=== PATIENT | male | born 1990 | race Caucasian/White ===

== ENCOUNTER 2018-03-18 12:52 | Emergency (ER) | payer BC, OTHER ==
[~2018-03-18] VITALS: Ht 175.3 cm; Wt 59.0 kg
[~2018-03-18 12:52] MED LIST: AMOX500C2 PO; AMOX500T2 PO; HYDR-34 PO; HYDR-757 PO; IBUP-1780 PO; TRAM50TA2 PO
--- NOTE | 2018-03-18 13:09 | ED Upper Extremity ---
General Chief Complaint: Laceration Stated Complaint: RIGHT INDEX FINGER LAC Source: patient Exam Limitations: no limitations History of Present Illness Date Seen by Provider: Mar 18, 2018 Time Seen by Provider: 13:07 Initial Comments to ER with a laceration/crush injury to the middle phalanx right pointer finger just prior to arrival when he was loading a trailer and his finger got caught between the truck hitch and the trailer. Tetanus was updated in 2015. He is right-hand dominant. Onset: just prior to arrival Severity: moderate Pain/Injury Location: right 2nd finger Method of Injury: direct blow Modifying Factors: Worse With Movement Allergies and Home Medications Allergies Coded Allergies: No Known Drug Allergies (Unverified , 05/06/15) Home Medications Cephalexin 500 Mg Capsule, 500 MG PO TID Prescribed by: PARTH BANDA on 03/18/18 1322 Hydrocodone/Acetaminophen 1 Each Tablet, 1 EACH PO Q4H PRN for PAIN-SEVERE do not fill unless keflex is also filled. Prescribed by: PARTH BANDA on 03/18/18 1322 Ibuprofen 800 Mg Tablet, 800 MG PO Q8H PRN for PAIN Prescribed by: PARTH BANDA on 04/14/16 1412 Patient Home Medication List Home Medication List Reviewed: Yes Constitutional: see HPI EENTM: see HPI Respiratory: no symptoms reported Cardiovascular: no symptoms reported Genitourinary: no symptoms reported Musculoskeletal: see HPI Skin: no symptoms reported Psychiatric/Neurological: No Symptoms Reported Past Grmmrhd-Oqibyc-Qawjfv Hx Patient Social History Former Smoker, Quit: Mar 23, 2016 Recent Foreign Travel: No Contact w/Someone Who Travel: No Recent Hopitalizations: No Immunizations Up To Date Tetanus Booster (TDap): More than 5yrs Seasonal Allergies Seasonal Allergies: No Past Medical History Reproductive Disorders: No Adverse Reaction/Blood Tranf: No Family Medical History No Pertinent Family Hx Physical Exam Vital Signs Vital Signs - First Documented 03/18/18 12:58 Temp 97.4 Pulse 75 Resp 16 B/P (MAP) 136/79 (98) O2 Delivery Room Air Capillary Refill : General Appearance: WD/WN, no apparent distress HEENT: PERRL/EOMI, normal ENT inspection Neck: non-tender, full range of motion Respiratory: no respiratory distress, no accessory muscle use Gastrointestinal: normal bowel sounds, non tender Elbow/Forearm: normal inspection, non-tender, Right Wrist: Yes normal inspection, Yes non-tender, Yes no evidence of injury Hand: Right, limited ROM (deformity to the middle phalanx with a laceration to the dorsal and palmar surface. Distally, sensation remains intact.evaluation of motor function is limited due to pain) Neurologic/Psychiatric: alert, normal mood/affect, oriented x 3 Skin: normal color, warm/dry Procedures/Interventions Wound Location: Upper Extremities Wound Length (cm): 3 Wound's Depth, Shape: linear, tendon Wound Explored: clean Irrigated w/ Saline (ccs): 400 Volume Anesthetic (ccs): 4 Suture: Prolene Suture Size: 4-0 Number of Sutures: 7 Layer Closure?: 1 Number Deep Layer Sutures: 0 Progress finger was anesthetized using 2 mL of lidocaine and 2 mL of bupivacaine using a digital block for anesthesia. Traction was then applied to the distal phalanx with pressure applied over the dorsal proximal aspect of the distal phalanx. Joint was reduced. Both lacerations were explored and there was no foreign body identified. The dorsal laceration was cleaned with 200 mL of sterile water/ Betadine solution and the palmar surface was irrigated the same. The flexor tendon was seen but appears to be intact. Dorsally he was closed with 3 simple interrupted sutures size 4-0 Prolene.Palmar surface was closed with 4 simple interrupted sutures size 4-0 Prolene. X-ray will be obtained to confirm reduction and I'll wrap the laceration with xeroform and gauze. Progress/Results/Core Measures Results/Orders My Orders Orders - PARTH BANDA APRN Lidocaine 2% Injection 20 Ml (Xylocaine (03/18/18 13:15) Bupivacaine 0.5% Injection (Sensorcaine (03/18/18 13:15) Dipht,Pertuss(Acell),Tet Adult (Boostrix (03/18/18 13:15) Hand, Right, 3 Views (03/18/18 13:04) Cefazolin Injection (Ancef Injection) (03/18/18 13:15) Water (Sterile) For Injection (Sterile W (03/18/18 13:10) Finger(S) (03/18/18 13:42) Medications Given in ED Current Medications Medications Dose Ordered Sig/Gideon Route Start Time Stop Time Status Last Admin Dose Admin Bupivacaine HCl 2 ml ONCE ONCE INJ 03/18/18 13:15 7/5/18 13:16 DC 03/18/18 13:19 2 ML Cefazolin Sodium 1,000 mg ONCE ONCE IM 03/18/18 13:15 03/18/18 13:16 DC 03/18/18 13:16 1,000 MG Lidocaine HCl 2 ml ONCE ONCE INJ 03/18/18 13:15 03/18/18 13:16 DC 03/18/18 13:20 2 ML Sterile Water 20 ml @ [facility] ONCE .ROUTE 03/18/18 13:10 03/18/18 13:13 DC 03/18/18 13:17 2.5 ML/HR Vital Signs/I&O 03/18/18 12:58 Temp 97.4 Pulse 75 Resp 16 B/P (MAP) 136/79 (98) O2 Delivery Room Air Diagnostic Imaging Diagonstic Imaging: Xray Comments NAME: JARETH WALTER [facility] REC#: [id number] PT STATUS: REG ER : 1990 PHYSICIAN: PARTH BANDA APRN ADMIT DATE: 03/18/18/ER Draft Date of Exam:03/18/18 HAND, RIGHT, 3 VIEWS INDICATION: Right hand injury. AP, oblique and lateral views of the right hand are obtained. Dorsal dislocation of the second distal phalanx. Focal lucency proximal to the dislocated distal phalanx may represent gas. There is associated swelling. No other fracture or malalignment is seen. IMPRESSION: Dorsal dislocation of the second distal phalanx. No definite fractures identified. Dictated on workstation # [id number] Dict: 03/18/18 1317 Trans: 03/18/18 1321 [facility] [id number] Interpreted by: KELLY LANDIN MD Electronically signed by: Departure Impression Primary Impression: Open finger dislocation Disposition: 01 HOME, SELF-CARE Condition: Stable Departure-Patient Inst. Decision time for Depature: 13:19 Referrals: JETHRO SIFUENTES MD, MARK E DO NO,LOCAL PHYSICIAN (PCP) Primary Care Physician GABRIELLA WAGONER MD, ROBERT F DO ZAFUTA, MICHAEL P MD Patient Instructions: Finger Dislocation Add. Discharge Instructions: 1. Antibiotics as directed 2. Take medication as directed 3. Return to ER to have the stitches removed in 10 days. Return to ER before then for any redness or swelling that may indicate infection. Follow-up with orthopedic surgeon of your choosing.A list has been provided for you. Call tomorrow to make an appointment to be seen as soon as they can schedule you, preferably within 1 week. Scripts Hydrocodone/Acetaminophen ([place] 5-325 Tablet) 1 Each Tablet 1 EACH PO Q4H PRN for PAIN-SEVERE, #14 TAB do not fill unless keflex is also filled. Prov: PARTH BANDA APRN 03/18/18 Cephalexin (Keflex) 500 Mg Capsule 500 MG PO TID, #21 CAP Prov: PARTH BANDA APRN 03/18/18 Work/School Note: Work Release Form Date Seen in the Emergency Department: Mar 18, 2018 Return to Work: Mar 19, 2018 Other Restrictions Listed Below: wear finger splint at all times for 7 days. Copy Copies To 1: RAFI JEFFERY MD, PETER J APRN Mar 18, 2018 13:09
[2018-03-18] MEDS ORDERED: WATER (STERILE) FOR INJECTION 20 ML ONE (13:10)
[2018-03-18] MEDS ORDERED: ceFAZolin 1,000 MG (ANCEF) VIAL IM ONE (13:15)
[2018-03-18] MEDS ORDERED: BUPIVACAINE 0.5% 30 ML (SENSORCAINE) VIAL INJ ONE (13:15)
[2018-03-18] MEDS ORDERED: LIDOCAINE 2% 20 ML (XYLOCAINE) VIAL INJ ONE (13:15)
[2018-03-18] MEDS ORDERED: TETANUS,DIPTH,PERTUSS P/F (BOOSTRIX) 0.5 ML VIAL IM ONE (13:15)
--- NOTE | 2018-03-18 13:21 | Diagnostic Imaging Report ---
INDICATION: Right hand injury. AP, oblique and lateral views of the right hand are obtained. Dorsal dislocation of the second distal phalanx. Focal lucency proximal to the dislocated distal phalanx may represent gas. There is associated swelling. No other fracture or malalignment is seen. IMPRESSION: Dorsal dislocation of the second distal phalanx. No definite fractures identified. Dictated by: Dictated on workstation # [id number]
[2018-03-18] MEDS ORDERED: HYDR-757 PO (13:22)
[2018-03-18] MEDS ORDERED: CEPH-507 PO (13:22)
[2018-03-18 14:17] VITALS: BP 134/77
--- NOTE | 2018-03-18 14:28 | Diagnostic Imaging Report ---
INDICATION: Dislocation of the distal interphalangeal joint index finger, post reduction. TECHNIQUE: Single view right hand with lateral view right index finger, 1:55 PM . CORRELATION STUDY: 03/18/2018 FINDINGS: There has been interval reduction of previously noted dislocated distal interphalangeal joint of the index finger. The alignment is anatomic on post reduction imaging. No definitive fracture. Remaining os structures There is mild soft tissue swelling of distal aspect of the index finger. IMPRESSION: 1. Satisfactory reduction of a previously demonstrated dislocated distal interphalangeal joint of the index finger. Alignment anatomic with associated soft tissue swelling. Dictated by: Dictated on workstation # [id number]
== END 2018-03-18 14:17 | disposition home or self-care (01) ==
LOC: EDUNIT# 12:52 → ER 12:55
DX: S63.290A Dislocation of distal interphalangeal joint of right index finger, initial encounter (principal); Z23 Encounter for immunization; Z87.891 Personal history of nicotine dependence; W23.1XXA Caught, crushed, jammed, or pinched between stationary objects, initial encounter
CPT/HCPCS: 12042; 73130; 73140; 90471; 96372

== ENCOUNTER 2018-03-28 16:11 | Emergency (ER) | payer BC ==
[~2018-03-28] VITALS: Ht 175.3 cm; Wt 59.0 kg
[~2018-03-28 16:11] MED LIST changes: +CEPH-507 PO
[2018-03-28 16:42] VITALS: BP 136/72
== END 2018-03-28 16:45 | disposition home or self-care (01) ==
LOC: EDUNIT# 16:11 → ER 16:13
DX: S61.210D Laceration without foreign body of right index finger without damage to nail, subsequent encounter (principal); X58.XXXD Exposure to other specified factors, subsequent encounter

== ENCOUNTER → 2018-12-31 | Outpatient (CLI) | payer OTHER ==
[~2018-12-31] MED LIST changes: +HYDR-4226 PO; -HYDR-757 PO
--- NOTE | 2018-12-31 13:19 | Diagnostic Imaging Report ---
PROCEDURE: CT abdomen without contrast. TECHNIQUE: Multiple contiguous axial images were obtained through the abdomen without the use of intravenous contrast. Auto Exposure Controls were utilized during the CT exam to meet ALARA standards for radiation dose reduction. INDICATION: Midabdominal pain. This study is performed to evaluate for hernia. COMPARISON: Correlation is made with prior CT from 04/14/2016. FINDINGS: The lung bases are clear. The liver and gallbladder are unremarkable. No biliary ductal dilatation is seen. Pancreas and spleen are unremarkable. No adrenal mass is detected. No renal calculi or hydronephrosis is identified. Aorta is nonaneurysmal. Abdominal bowel loops are normal in caliber. No obstruction is seen. No abdominal wall defect is detected to suggest hernia. No free fluid or fluid collection is identified. IMPRESSION: Unremarkable noncontrast CT of the abdomen. Dictated by: Dictated on workstation # [id number]
== END ==
LOC: RAD 12:35
PROVIDERS: ATTEND Nurse Practitioner
DX: R10.9 Unspecified abdominal pain (principal)
CPT/HCPCS: 74150

== ENCOUNTER 2021-04-30 05:53 | Emergency (ER) | payer OTHER ==
[~2021-04-30] VITALS: Ht 177 cm; Wt 61.2 kg
[~2021-04-30 05:53] MED LIST changes: -TRAM50TA2 PO; +TRM50T PO
--- NOTE | 2021-04-30 06:11 | ED Abdominal Pain ---
General Stated Complaint: LEFT KIDNEY PAIN Source of Information: Patient Exam Limitations: No Limitations History of Present Illness Date Seen by Provider: Apr 30, 2021 Time Seen by Provider: 06:00 Initial Comments Patient to ER by private conveyance with chief complaint of severe pain just prior to arrival that woke him from sleep that is sharp unrelenting 10 out of 10. He did not take anything for it yet. He tried to have a bowel movement and urine but was unable to pass either. He has no history of kidney stones. Has some mild burning on urination. No blood in the urine. No other significant medical history or surgeries. Allergies and Home Medications Allergies Coded Allergies: No Known Drug Allergies (Unverified , 05/06/15) Home Medications Cephalexin 500 Mg Capsule, 500 MG PO TID Prescribed by: PARTH BANDA on 03/18/18 1322 Hydrocodone/Acetaminophen 1 Each Tablet, 1 EACH PO Q4H PRN for PAIN-SEVERE do not fill unless keflex is also filled. Prescribed by: PARTH BANDA on 03/18/18 1322 Ibuprofen 800 Mg Tablet, 800 MG PO Q8H PRN for PAIN Prescribed by: PARTH BANDA on 04/14/16 1412 Patient Home Medication List Home Medication List Reviewed: Yes Review of Systems Review of Systems Constitutional: No chills, No fever EENTM: No Blurred Vision, No Double Vision Respiratory: Denies Cough, Denies Shortness of Air Cardiovascular: Denies Chest Pain, Denies Edema Gastrointestinal: See HPI; Denies Constipated, Denies Diarrhea; Nausea; Denies Vomiting Genitourinary: Denies Burning, Denies Discharge Musculoskeletal: No back pain, No joint pain Skin: No pruritus, No rash Psychiatric/Neurological: Denies Headache, Denies Numbness All Other Systems Reviewed Negative Unless Noted: Yes Past Soldmtp-Wkmhka-Xbbozn Hx Patient Social History Tobacco Use?: No Use of E-Cig and/or Vaping dev: No Substance use?: No Immunizations Up To Date Tetanus Booster (TDap): More than 5yrs Seasonal Allergies Seasonal Allergies: No Past Medical History Surgeries: Yes (JAW) Respiratory: No Cardiac: No Neurological: No Reproductive Disorders: No Gastrointestinal: No Musculoskeletal: No Endocrine: No Cancer: No Psychosocial: No Integumentary: No Blood Disorders: No Adverse Reaction/Blood Tranf: No Family Medical History No Pertinent Family Hx Physical Exam Vital Signs Vital Signs - First Documented 04/30/21 05:56 Temp 36.9 Pulse 111 Resp 18 B/P (MAP) 106/55 (72) Pulse Ox 97 O2 Delivery Room Air Capillary Refill : Height/Weight/BMI Height: 5'9.00" Weight: 130lbs. oz. 58.991764em; 14.06 BMI Method:Stated General Appearance: WD/WN, moderate distress HEENT: PERRL/EOMI, pharynx normal Neck: full range of motion, normal inspection Respiratory: lungs clear, normal breath sounds, no respiratory distress, no accessory muscle use Cardiovascular: normal peripheral pulses, regular rate, rhythm Peripheral Pulses: 2+ Radial Pulses (R), 2+ Radial Pulses (L) Gastrointestinal: normal bowel sounds, non tender, soft Back: normal inspection, CVA tenderness (L) Neurologic/Psychiatric: alert, oriented x 3, other (Anxious affect) Skin: normal color, warm/dry Procedures/Interventions Suture Size: 4-0 Progress/Results/Core Measures Results/Orders Lab Results Laboratory Tests Test 04/30/21 06:05 Range/Units White Blood Count 11.9 H 4.3-11.0 10^3/uL Red Blood Count 4.99 4.30-5.52 10^6/uL Hemoglobin 15.6 13.3-17.7 g/dL Hematocrit 45 40-54 % Mean Corpuscular Volume 91 80-99 fL Mean Corpuscular Hemoglobin 31 25-34 pg Mean Corpuscular Hemoglobin Concent 34 32-36 g/dL Red Cell Distribution Width 12.7 10.0-14.5 % Platelet Count 319 130-400 10^3/uL Mean Platelet Volume 10.1 9.0-12.2 fL Immature Granulocyte % (Auto) 0 % Neutrophils (%) (Auto) 57 42-75 % Lymphocytes (%) (Auto) 30 12-44 % Monocytes (%) (Auto) 6 0-12 % Eosinophils (%) (Auto) 7 0-10 % Basophils (%) (Auto) 1 0-10 % Neutrophils # (Auto) 6.8 1.8-7.8 10^3/uL Lymphocytes # (Auto) 3.6 1.0-4.0 10^3/uL Monocytes # (Auto) 0.7 0.0-1.0 10^3/uL Eosinophils # (Auto) 0.8 H 0.0-0.3 10^3/uL Basophils # (Auto) 0.1 0.0-0.1 10^3/uL Immature Granulocyte # (Auto) 0.1 0.0-0.1 10^3/uL Sodium Level 140 135-145 MMOL/L Potassium Level 4.4 3.6-5.0 MMOL/L Chloride Level 103 98-107 MMOL/L Carbon Dioxide Level 26 21-32 MMOL/L Anion Gap 11 5-14 MMOL/L Blood Urea Nitrogen 21 H 7-18 MG/DL Creatinine 1.12 0.60-1.30 MG/DL Estimat Glomerular Filtration Rate 78 BUN/Creatinine Ratio 19 Glucose Level 110 H 70-105 MG/DL Calcium Level 9.4 8.5-10.1 MG/DL Corrected Calcium 8.5-10.1 MG/DL Total Bilirubin 0.3 0.1-1.0 MG/DL Aspartate Amino Transf (AST/SGOT) 16 5-34 U/L Alanine Aminotransferase (ALT/SGPT) 21 0-55 U/L Alkaline Phosphatase 76 40-136 U/L Total Protein 7.2 6.4-8.2 GM/DL Albumin 4.6 H 3.2-4.5 GM/DL My Orders Orders - BRITTANY ALEXANDER Ketorolac Injection (Toradol Injection) (04/30/21 06:15) Ed Iv/Invasive Line Start (04/30/21 06:04) Lactated Ringers (Lr 1000 Ml Iv Solution (04/30/21 06:15) Cbc With Automated Diff (04/30/21 06:04) Comprehensive Metabolic Panel (04/30/21 06:04) Ondansetron Injection (Zofran Injectio (04/30/21 06:15) Ct Abd/Pelvis Wo(Kidney Stone) (04/30/21 06:05) Ua Culture If Indicated (04/30/21 06:51) Medications Given in ED Current Medications Medications Dose Ordered Sig/Gideon Route Start Time Stop Time Status Last Admin Dose Admin Ketorolac Tromethamine 30 mg ONCE ONCE IVP 04/30/21 06:15 04/30/21 06:16 DC 04/30/21 06:09 30 MG Lactated Ringer's 1,000 ml @ 0 mls/hr Q0M ONCE IV 04/30/21 06:15 04/30/21 06:16 DC 04/30/21 06:09 1,000 MLS/HR Ondansetron HCl 4 mg ONCE ONCE IVP 04/30/21 06:15 04/30/21 06:16 DC 04/30/21 06:09 4 MG Vital Signs/I&O 04/30/21 05:56 Temp 36.9 Pulse 111 Resp 18 B/P (MAP) 106/55 (72) Pulse Ox 97 O2 Delivery Room Air Progress Progress Note : Time: 06:13 Progress Note Suspect kidney stone, possible pyelonephritis. Plan to grab some urine and get a CT of his abdomen pelvis without IV contrast kidney stone study. Toradol and Zofran. Diagnostic Imaging Diagonstic Imaging: CT Plain Films/CT/US/NM/MRI: abdomen, pelvis Comments [facility] [place] NAME: JARETH WALTER [facility] REC#: [id number] PT STATUS: REG ER : 1990 PHYSICIAN: BRITTANY ALEXANDER MD ADMIT DATE: 04/30/21/ER Signed Date of Exam:04/30/21 CT ABD/PELVIS WO(KIDNEY STONE) PROCEDURE: CT urinary tract, rule out kidney stone. TECHNIQUE: Multiple contiguous axial images were obtained through the abdomen and pelvis without the use of intravenous contrast. Auto Exposure Controls were utilized during the CT exam to meet ALARA standards for radiation dose reduction. INDICATION: Left-sided flank pain. COMPARISON: 12/31/2018. FINDINGS: The heart is unremarkable. The lung bases are clear. Calculus is seen in the distal left ureter just proximal to the left UVJ measuring 3 mm. There is mild left-sided hydroureteronephrosis. No evidence of renal calculi or hydronephrosis on the right. Increased attenuation is seen within the medulla of the right kidney. The liver, spleen, pancreas, and adrenal glands have a normal noncontrast CT appearance. There is no pathologically enlarged mesenteric or retroperitoneal adenopathy. The bowel loops are nondilated. The appendix is visualized in the right lower quadrant and has a normal appearance. There is no free fluid or free air. No acute osseous abnormalities. The urinary bladder is decompressed. There is no free air, loculated collection, or adenopathy in the pelvis. IMPRESSION: 1. Urolithiasis in the distal left ureter measuring 3 mm with mild left-sided hydronephrosis. 2. Increased attenuation in the medulla of the right kidney, which can be seen with medullary nephrocalcinosis. Recommend correlation with patient history. Dictated by: Dictated on workstation # [id number] Dict: 04/30/2141 Trans: 04/30/21644 [facility] [id number] Interpreted by: EMY CASTILLO DO Electronically signed by: EMY CASTILLO DO 04/30/2145 Reviewed: Reviewed by Me Departure Impression Primary Impression: Kidney stone on left side Additional Impression: Medullary calcification of kidney Disposition: HOME, SELF-CARE Condition: Stable Departure-Patient Inst. Decision time for Depature: 07:09 [place] [facility] [place] Primary Care Physician DEANDRA BAEZA APRN (Family) Primary Care Physician ELISEO LAI MD Patient Instructions: Kidney Stone, Adult ED, How to Strain Your Urine Add. Discharge Instructions: Drink lots of fluids. Tylenol 650 mg every 8 hours as needed for pain. Motrin 800 mg every 8 hours as needed for pain. Heat applied to the back as needed. Hydrocodone 1 tablet every 6 hours as necessary for breakthrough pain. Flomax 1 capsule daily until you pass the stones. Ondansetron 1 tablet every 6 hours under the tongue as necessary for nausea and/or vomiting. Keflex 1 capsule twice a day for the next week to treat possible UTI. Strain your urine using the strainer to see when the stones pass. Occasionally stones will break up and not be caught in the strainer. Symptoms should resolve 1 to 2 days after the passing of stones. I suggest you follow-up with Dr. Lai, urology this week. Return to the nearest ER if you are having intractable pain and/or nausea, fever etc. Scripts Tamsulosin HCl (Flomax) 0.4 Mg Cap 0.4 MG PO DAILY for 7 Days, #7 CAP 0 Refills Prov: BRITTANY ALEXANDER 04/30/21 Cephalexin (Cephalexin) 500 Mg Tablet 500 MG PO BID for 7 Days, #14 TAB 0 Refills Prov: BRITTANY ALEXANDER 04/30/21 Ondansetron (Ondansetron Odt) 4 Mg Tab.rapdis 4 MG PO Q6H PRN for NAUSEA/VOMITING, #15 TAB 0 Refills Prov: BRITTANY ALEXANDER 04/30/21 Hydrocodone/Acetaminophen (Hydrocodone-Acetamin 5-325 mg) 1 Each Tablet 1 TAB PO Q6H PRN for PAIN-MODERATE (5-7), #15 TAB 0 Refills Prov: BRITTANY ALEXANDER 04/30/21 Work/School Note: Work Release Form Date Seen in the Emergency Department: Apr 30, 2021 Return to Work: May 03, 2021 Restrictions: No Restrictions Copy Copies To 1: ELISEO LAI MD, TITUS J Apr 30, 2021 06:11
[2021-04-30 06:13] LABS: BASOPHILS # (AUTO) 0.1 10^3/uL (0.0-0.1); BASOPHILS % (AUTO) 1 % (0-10); EOSINOPHILS # (AUTO) 0.8 10^3/uL (0.0-0.3); EOSINOPHILS % (AUTO) 7 % (0-10); HEMATOCRIT 45 % (40-54); HEMOGLOBIN 15.6 g/dL (13.3-17.7); LYMPHOCYTES # (AUTO) 3.6 10^3/uL (1.0-4.0); LYMPHOCYTES % (AUTO) 30 % (12-44); MEAN CORPUSCULAR HEMOGLOBIN 31 pg (25-34); MEAN CORPUSCULAR HGB CONC 34 g/dL (32-36); MEAN CORPUSCULAR VOLUME 91 fL (80-99); MEAN PLATELET VOLUME 10.1 fL (9.0-12.2); MONOCYTES # (AUTO) 0.7 10^3/uL (0.0-1.0); MONOCYTES % (AUTO) 6 % (0-12); NEUTROPHILS # (AUTO) 6.8 10^3/uL (1.8-7.8); NEUTROPHILS % (AUTO) 57 % (42-75); PLATELET COUNT 319 10^3/uL (130-400); WHITE BLOOD COUNT 11.9 10^3/uL (4.3-11.0)
[2021-04-30] MEDS ORDERED: ONDANSETRON 4 MG/2 ML (SDV) Z0FRAN IVP ONE (06:15)
[2021-04-30] MEDS ORDERED: LACTATED RINGERS 1,000 ML IV ONE (06:15)
[2021-04-30] MEDS ORDERED: KETOROLAC 30 MG/ML VIAL IVP ONE (06:15)
[2021-04-30 06:22] LABS: ALBUMIN 4.6 GM/DL (3.2-4.5)
[2021-04-30 06:23] LABS: CHLORIDE 103 MMOL/L (98-107); POTASSIUM 4.4 MMOL/L (3.6-5.0); SODIUM 140 MMOL/L (135-145)
[2021-04-30 06:24] LABS: CALCIUM 9.4 MG/DL (8.5-10.1)
[2021-04-30 06:25] LABS: GLUCOSE 110 MG/DL (70-105); TOTAL PROTEIN 7.2 GM/DL (6.4-8.2)
[2021-04-30 06:26] LABS: CARBON DIOXIDE 26 MMOL/L (21-32)
[2021-04-30 06:27] LABS: BILIRUBIN,TOTAL 0.3 MG/DL (0.1-1.0)
[2021-04-30 06:28] LABS: ALKALINE PHOSPHATASE 76 U/L (40-136)
[2021-04-30 06:29] LABS: CREATININE SERUM 1.12 MG/DL (0.60-1.30); GFR ESTIMATED 78
[2021-04-30 06:30] LABS: BUN/CREATININE RATIO 19
[2021-04-30 06:31] LABS: ALANINE AMINOTRANSFERASE 21 U/L (0-55)
--- NOTE | 2021-04-30 06:45 | Diagnostic Imaging Report ---
PROCEDURE: CT urinary tract, rule out kidney stone. TECHNIQUE: Multiple contiguous axial images were obtained through the abdomen and pelvis without the use of intravenous contrast. Auto Exposure Controls were utilized during the CT exam to meet ALARA standards for radiation dose reduction. INDICATION: Left-sided flank pain. COMPARISON: 12/31/2018. FINDINGS: The heart is unremarkable. The lung bases are clear. Calculus is seen in the distal left ureter just proximal to the left UVJ measuring 3 mm. There is mild left-sided hydroureteronephrosis. No evidence of renal calculi or hydronephrosis on the right. Increased attenuation is seen within the medulla of the right kidney. The liver, spleen, pancreas, and adrenal glands have a normal noncontrast CT appearance. There is no pathologically enlarged mesenteric or retroperitoneal adenopathy. The bowel loops are nondilated. The appendix is visualized in the right lower quadrant and has a normal appearance. There is no free fluid or free air. No acute osseous abnormalities. The urinary bladder is decompressed. There is no free air, loculated collection, or adenopathy in the pelvis. IMPRESSION: 1. Urolithiasis in the distal left ureter measuring 3 mm with mild left-sided hydronephrosis. 2. Increased attenuation in the medulla of the right kidney, which can be seen with medullary nephrocalcinosis. Recommend correlation with patient history. Dictated by: Dictated on workstation # [id number]
[2021-04-30] MEDS ORDERED: cefTRIAXone 1,000 MG in WATER (STERILE) FOR INJECTION 10 ML IV ONE (07:15)
[2021-04-30] MEDS ORDERED: ACHD5005 PO (07:22)
[2021-04-30] MEDS ORDERED: TMSL.4C PO (07:22)
[2021-04-30] MEDS ORDERED: ONDA4TAB11 PO (07:22)
[2021-04-30] MEDS ORDERED: CEPH500T PO (07:22)
[2021-04-30 07:33] LABS: BILIRUBIN,URINE NEGATIVE (NEGATIVE); CLARITY,URINE CLEAR; COLOR,URINE YELLOW; GLUCOSE, URINE (UA) NEGATIVE (NEGATIVE); KETONES,URINE TRACE (NEGATIVE); LEUKOCYTE ESTERASE ,URINE TRACE (NEGATIVE); NITRITE,URINE NEGATIVE (NEGATIVE); PROTEIN,URINE TRACE (NEGATIVE)
[2021-04-30 07:38] VITALS: BP 109/45
[2021-04-30 07:50] LABS: BACTERIA,URINE NEGATIVE /HPF; RBC,URINE 50-100 /HPF; WBC,URINE 0-2 /HPF
== END 2021-04-30 07:30 | disposition home or self-care (01) ==
LOC: EDUNIT# 05:53 → ER 05:56
DX: N13.2 Hydronephrosis with renal and ureteral calculous obstruction (principal); N28.89 Other specified disorders of kidney and ureter
CPT/HCPCS: 36415; 74176; 80053; 81000; 85025; 96374; 96375

== ENCOUNTER 2022-05-25 14:55 | Emergency (ER) | payer OTHER ==
[~2022-05-25] VITALS: Ht 177.8 cm; Wt 58.9 kg
[~2022-05-25 14:55] MED LIST changes: +ACHD5005 PO; +CEPH500T PO; +ONDA4TAB11 PO; +TMSL.4C PO
[2022-05-25] MEDS ORDERED: SULF1TAB38 PO (15:54)
--- NOTE | 2022-05-25 15:55 | ED Integumentary General ---
General Chief Complaint: Skin/Wound Problems Stated Complaint: L ARMPIT LUMP Nursing Triage Note: PT AMB TO [facility]. PT STATED THAT HE FOUND A LUMP ON HIS LEFT ARMPIT 5 MONTHS AGO AND STARTED TO HAVE PAIN IN THE LAST 4 DAYS, WITH LUMP BECOMING SWOLLEN AND RED. (CHYNA ADAME) History of Present Illness Date Seen by Provider: May 25, 2022 Time Seen by Provider: 15:30 Initial Comments 32-year-old male presents with a small abscess to the left axilla. He reports that he has had some symptoms for approximately 5 months but they have become progressively worse over the last 4 days. He has had no drainage from the site. He denies any history of MRSA. Timing/Duration: getting worse Severity: mild Location: torso (Left axilla) Possible Cause: no cause identified Associated Symptoms: denies symptoms (CHYNA ADAME) Allergies and Home Medications Allergies Coded Allergies: No Known Drug Allergies (Unverified , 05/06/15) Patient Home Medication List Home Medication List Reviewed: Yes (CHYNA ADAME) Cephalexin (Keflex) 500 Mg Capsule, 500 MG PO TID Prescribed by: PARTH BANDA on 03/18/18 1322 Cephalexin (Cephalexin) 500 Mg Tablet, 500 MG PO BID Prescribed by: BRITTANY ALEXANDER on 04/30/21 07 Hydrocodone/Acetaminophen (Hydrocodone/Acetaminophen 5 MG/325 MG TAB) 1 Each Tablet, 1 EACH PO Q4H PRN for PAIN-SEVERE Prescribed by: PARTH BANDA on 03/18/18 1322 Hydrocodone/Acetaminophen (Hydrocodone-Acetamin 5-325 mg) 1 Each Tablet, 1 TAB PO Q6H PRN for PAIN-MODERATE (5-7) Prescribed by: BRITTANY ALEXANDER on 04/30/21 07 Ibuprofen (Ibuprofen) 800 Mg Tablet, 800 MG PO Q8H PRN for PAIN Prescribed by: PARTH BANDA on 04/14/16 1412 Ondansetron (Ondansetron Odt) 4 Mg Tab.rapdis, 4 MG PO Q6H PRN for NAUSEA/VOMITING Prescribed by: BRITTANY ALEXANDER on 04/30/21 0722 Sulfamethoxazole/Trimethoprim (Bactrim Ds Tablet) 1 Each Tablet, 1 EACH PO BID Prescribed by: CHYNA ADAME on 05/25/22 1554 Tamsulosin HCl (Flomax) 0.4 Mg Cap, 0.4 MG PO DAILY Prescribed by: BRITTANY ALEXANDER on 04/30/21 0722 Review of Systems Review of Systems Constitutional: no symptoms reported, see HPI Skin: see HPI, lumps (Abscess to left axilla) (CHYNA ADAME) All Other Systems Reviewed Negative Unless Noted: Yes (CHYNA ADAME) Past Vxijozv-Ltorkf-Rgafwo Hx Patient Social History Tobacco Use?: Yes Substance use?: No Alcohol Use?: No (CHYNA ADAME) Immunizations Up To Date Tetanus Booster (TDap): More than 5yrs Influenza Vaccine Up-to-Date: Yes; Up-to-Date (CHYNA ADAME) Seasonal Allergies Seasonal Allergies: No (CHYNA ADAME) Past Medical History Surgeries: Yes (JAW) Respiratory: No Cardiac: No Neurological: No Reproductive Disorders: No Gastrointestinal: No Musculoskeletal: No Endocrine: No Cancer: No Psychosocial: No Integumentary: No Blood Disorders: No Adverse Reaction/Blood Tranf: No (CHYNA ADAME) Family Medical History Reviewed Nursing Family Hx (CHYNA ADAME) No Pertinent Family Hx (CHYNA ADAME) Physical Exam Vital Signs Vital Signs - First Documented 05/25/22 05/25/22 15:13 16:05 Temp 36.4 Pulse 79 Resp 14 B/P (MAP) 122/74 (90) Pulse Ox 98 O2 Delivery Room Air (FAVIOLA GARCIA MD) Vital Signs Capillary Refill : Less Than 3 Seconds (CHYNA ADAME) General Appearance: WD/WN, no apparent distress Cardiovascular: normal peripheral pulses, regular rate, rhythm Respiratory: chest non-tender, lungs clear Extremities: normal range of motion, no pedal edema, normal capillary refill Neurologic/Psychiatric: no motor/sensory deficits, alert, normal mood/affect Skin: normal color, warm/dry Skin Problem Location: torso (Left axilla) Skin Problem Character: abscess (Moderate induration no fluctuance or erythema. No specific folliculitis noted) (CHYNA ADAME) Procedures/Interventions Suture Size: 4-0 (CHYNA ADAME) Progress/Results/Core Measures Results/Orders Vital Signs/I&O 05/25/22 05/25/22 15:13 16:05 Temp 36.4 Pulse 79 80 Resp 14 B/P (MAP) 122/74 (90) 125/79 Pulse Ox 98 O2 Delivery Room Air Room Air (FAVIOLA GARCIA MD) Blood Pressure Mean: 90 Departure Impression Primary Impression: Abscess Disposition: 01 HOME, SELF-CARE Condition: Improved Departure-Patient Inst. Decision time for Depature: 15:50 (CHYNA ADAME) Referrals: [facility],LOCAL PHYSICIAN (PCP) Primary Care Physician Patient Instructions: Skin Abscess Add. Discharge Instructions: Use warm to hot water on washcloths and apply to left armpit several times daily. Take antibiotics as prescribed. Follow-up at [facility] walk-in in 3 to 4 days if symptoms or not improving, sooner if they worsen. Alternate Tylenol 650 mg and ibuprofen 600 mg every 4 hours for pain. Return to the emergency department for new, urgent healthcare needs. All discharge instructions reviewed with patient and/or family. Voiced understanding. Scripts Sulfamethoxazole/Trimethoprim (Bactrim Ds Tablet) 1 Each Tablet 1 EACH PO BID, #14 TAB 0 Refills Prov: CHYNA ADAME 05/25/22 ATTENDING PHYSICIAN NOTE: I was physically present as attending physician in the emergency department during the care of this patient, but I was not directly involved in the decision making or delivery of care for this patient. (FAVIOLA GARCIA MD) CHYNA ADAME May 25, 2022 15:55 FAVIOLA GARCIA MD May 28, 2022 02:09
[2022-05-25 16:05] VITALS: BP 125/79
== END 2022-05-25 16:05 | disposition home or self-care (01) ==
LOC: EDUNIT# 14:55 → ER 14:58
DX: L02.412 Cutaneous abscess of left axilla (principal); Z72.0 Tobacco use; Z28.310 Unvaccinated for COVID-19
CPT/HCPCS: 99281